=== PATIENT | male | born 1980 | race Caucasian/White ===

== ENCOUNTER 2025-02-26 11:34 | Emergency (ER) | payer OTHER ==
[~2025-02-26] VITALS: Ht 167.6 cm; Wt 63.9 kg
[2025-02-26 11:48] VITALS: BP 105/67; PULSE 58; TEMP 98.1; O2SAT 100
[2025-02-26] MEDS ORDERED: RISP-31 PO (13:11)
--- NOTE | 2025-02-26 13:11 | Physician Documentation ---
HPI ~ General Chief Complaint: Medication Refill Stated Complaint: MED REQUEST Time Seen by MD: 12:11 History of Present Illness HPI Comments Is a pleasant 45-year-old male that presents to the emergency department for evaluation for medication refill. Patient reports he takes risperidone 2 mg every day. Patient reports he has been off his medication for some time. Patient would like to have his medication refilled here today and he will follow up to establish primary care. Other symptoms or concerns reported at this time. Medication Reconciliation Allergies: Coded Allergies: acetaminophen (Verified Allergy, Unknown, ITCH, 02/26/25) hydrocodone (Verified Allergy, Unknown, ITCH, 02/26/25) Review of Systems ROS As stated above in the HPI, otherwise all systems are reviewed and negative. Physical Exam Physical Exam Vital Signs: Temperature: 98.1, Source: Oral, Heart Rate: 58, Respiratory Rate: 17, BP: 105/67, Pulse Oximetry: 100, Weight: 63.900 Physical Exam VITALS: Reviewed and as above. GENERAL: Alert, no apparent distress. HEENT: Normocephalic, atraumatic, PERRL, EOMI, dry mucosa, no erythema RESPIRATORY: Lungs clear, normal breath sounds, no respiratory distress. CHEST: No accessory muscle use, no retractions CV: Regular rate, rhythm, no edema, no murmur, No: JVD GI: Soft, non-tender, bowels sounds present, no rebound, guarding, or rigidity BACK: No CVA tenderness, or swelling MUSCULOSKELETAL No deformities, no edema SKIN: Warm and dry, no rash NEURO: Oriented x4, No motor or sensory deficit PSYCH: Normal mood and affect, no agitation Progress Results/Orders Results/Orders Vital Signs 02/26/25 11:48 Temp 98.1 Pulse 58 Resp 17 B/P (MAP) 105/67 Pulse Ox 100 Medical Decision Making Additional information obtaine: other Findings Is a pleasant 45-year-old male that presents to the emergency department for evaluation for medication refill. Patient reports he takes risperidone 2 mg every day. Patient reports he has been off his medication for some time. Patient would like to have his medication refilled here today and he will follow up to establish primary care. Other symptoms or concerns reported at this time. Differential Dx:Considerations: Include: Adverse circumstances, Economic, Psychosocial, Medical services unavail., Medication refill, Medication non- compliance, Other Departure Disposition: HOME / SELF CARE / HOMELESS Impression: Primary Impression: General medical exam Condition: Stable Discharge Instructions: Medical Screening Exam, Medicine Refill at the Emergency Department Additional Instructions: Is a pleasant 45-year-old male that presents to the emergency department for evaluation for medication refill. Patient reports he takes risperidone 2 mg every day. Patient reports he has been off his medication for some time. Patient would like to have his medication refilled here today and he will follow up to establish primary care. Other symptoms or concerns reported at this time. Referrals: NO PRIMARY CARE PROVIDER (PCP) Prescriptions Risperidone (Risperidone) 1 Mg Tablet 1 TAB PO HS for 10 Days, #30 TAB 0 Refills Prov: MARTHA CASTAÑEDA 02/26/25 Education Educated: Patient Educated regarding: diagnosis, treatment, need for follow up Signature Scribe Signature: A Attestation: Scribed for Martha Castañeda by CARI Moscoso . 02/26/25 13:11 MARTHA CASTAÑEDA Feb 26, 2025 13:11
[2025-02-26 13:14] VITALS: RESP 16
== END 2025-02-26 13:16 | disposition home or self-care (01) ==
LOC: ER 11:35
DX: Z00.00 Encounter for general adult medical examination without abnormal findings (principal); Z79.899 Other long term (current) drug therapy; Z76.0 Encounter for issue of repeat prescription; Z88.5 Allergy status to narcotic agent
CPT/HCPCS: 99282